=== PATIENT | female | born 1990 | race Caucasian/White ===

== ENCOUNTER → 2017-09-25 | Day surgery (SDC) | payer OTHER ==
--- NOTE | 2017-09-24 13:03 | Pre Op History & Physical ---
CHIEF COMPLAINT: Chronic sinusitis, nasal obstruction and recurrent tonsillitis. HISTORY OF PRESENT ILLNESS: This 26-year-old female has 4 to 6 episodes of tonsillitis a year for the past few years. The patient has been treated with multiple antibiotics with no improvement. She also has nasal obstruction, worse on the left side, with postnasal drip discharge from her nose. The patient's sinus problem has been also treated recently with multiple antibiotics with no improvement. She had endoscopic sinus surgery done in September of 2016 with not much improvement of the condition. The CT scan of paranasal sinuses done before surgery showed the patient has chronic sinusitis and deviated nasal septum. REVIEW OF SYSTEMS: Showed no recent cardiovascular, respiratory or GI problem. PAST MEDICAL HISTORY: Patient has no significant medical problem. PAST SURGICAL HISTORY: The patient has previous endoscopic sinus surgery, shoulder surgery, collapsed lung. ALLERGIES: SHE IS ALLERGIC TO ZOFRAN. MEDICATIONS: She is not on any regular medication. SOCIAL HISTORY: Nonsmoker and a social drinker. FAMILY HISTORY: Noncontributory. PHYSICAL EXAMINATION VITAL SIGNS: Within normal limits. EAR: Shows normal tympanic membrane bilaterally. NOSE: Hypertrophy of inferior turbinate. THROAT: Oropharynx oral cavity showed 3+ tonsils on left, 2+ on the right. NECK: No lymph node or thyroid palpable. CHEST: Good entry bilaterally. CARDIOVASCULAR: S1 and S2. No murmur noted. Ms. Renae has chronic sinusitis, nasal obstruction and recurrent tonsillitis which has been resistant to conservative therapy. The suggested treatment is endoscopic sinus surgery, septoplasty, tonsillectomy, possible adenoidectomy and other necessary procedure. Complication of procedure includes but not limited to bleeding, infection, CSF leak, blindness, double vision, meningitis, septal perforation, septal hematoma, persistent nasal obstruction, persistent nasal crusting, nasal deformity, recurrence of the sinus problem along with hypernasal speech, nasal regurgitation of food, airway distress or recurrence of sore throat. The alternative would be continued observation, continued antibiotic therapy, topical nasal steroid therapy, systemic steroid therapy, decongestant. The patient has elected to undergo the surgical procedure. Job#: [id number] SABA
[~2017-09-25] MED LIST: BUPIVACAINE 0.5%/EPI 30 ML SDV INJ ONE; COCAINE HCL 4% 4 ML BTL EXT ONE; DEXAMETHASONE SOD PHOS 10 MG/1 ML VIAL ONE; DEXAMETHASONE SOD PHOS INJ 4 MG/ML VIAL ONE; EPINEPHRINE HCL INJ 1 MG/ML AMP ONE; FENTANYL CITRATE/PF 100MCG/2 ML INJ ONE; GLYCOPYRROLATE INJ 1MG/ 5 ML SYR ONE; HYDROMORPHONE 1MG/1ML INJ ONE; LIDOCAINE 1% W/EPINEPHRINE 20 ML VIAL ONE; LIDOCAINE HCL (LTA) 4 ML SOLN ONE; LIDOCAINE HCL 2% LOCAL INJ 5 ML SDV VIAL INJ ONE; MIDAZOLAM HCL 2 MG/2 ML VIAL ONE; NEOSTIGMINE 5 MG/5ML SYR ONE; PROMETHAZINE HCL (IM) 25 MG/ML VIAL ONE; PROPOFOL IV EMULSION 10 MG/ML 20 ML VIAL ONE; ROCURONIUM BROMIDE 10 MG/ML 5ML VIAL ONE; SEVOFLURANE INHAL SOLN 250 ML PEN BTL ONE; TRIAMCINOLONE 0.1% OINTMENT 15 GM TUBE ONE
--- NOTE | 2017-09-25 17:30 | Operative Report ---
DATE OF PROCEDURE: September 25, 2017 CHIEF COMPLAINT: Chronic sinusitis, nasal obstruction and recurrent tonsillitis. POSTOPERATIVE DIAGNOSIS: 1. Chronic sinusitis. 2. Nasal obstruction. 3. Recurrent tonsillitis. OPERATIVE PROCEDURE: 1. Bilateral anterior ethmoidectomy. 2. Bilateral maxillary sinus antrostomy. 3. Bilateral resection of polyps of the maxillary antrum. 4. Tonsillectomy. ANESTHESIA: Anesthesiology group. INDICATIONS: This 26-year-old female has history of 6 to 7 episodes of tonsillitis a year for the past few years. She also has nasal obstruction, worse on the left side with a blockage feeling on the left. The patient's condition has been treated with topical nasal steroid, decongestant, antibiotics with no improvement. On examination she was noted have hypertrophy of the inferior turbinate and a slight deviated nasal septum to the left side about 20% or 30%. The patient had 2+ tonsils bilaterally with exudate. The patient had previous endoscopic sinus surgery about a year ago. This was performed elsewhere. A repeat CT scan of paranasal sinuses showed the patient has operated anterior ethmoid sinuses, but the left side was not open with some narrowing. She also was noted to have mucosal thickening in the maxillary sinus. It was decided that limited endoscopic sinus surgery with opening of the left ethmoid and resection of maxillary sinus polypoid changes along with tonsillectomy and other necessary procedures would be beneficial for her. DESCRIPTION OF PROCEDURE: Patient was taken to the operating room and put under general anesthesia, endotracheally intubated. The nose was injected with 1% Xylocaine with 1:100,000 epinephrine for hemostasis. Epinephrine-soaked pledgets were inserted into the nose. These were subsequently removed. The left paranasal sinuses were approached first. Middle turbinate was medialized. The anterior ethmoid sinus was entered. The bulla ethmoidalis was entered. Anterior ethmoid sinus was dissected in systematic fashion. Care was taken during dissection to ascertain the orbit was not entered. Polypoid changes were noted in the anterior ethmoid sinus area. The maxillary natural ostium was addressed. This has closed back down. This was enlarged using a microshaver. The polypoid changes in the maxillary sinus were dissected using the up-biting True-Cut forceps. The right paranasal sinuses were approached. Middle turbinate was medialized. Only the anterior portion of the anterior ethmoid sinuses was opened. The rest has been closed down. This was opened up using the microshaver. Care was taken during dissection to ascertain the orbit was not entered. Polypoid changes were noted. The natural ostium of the right side was open. The maxillary sinus was partially open. This was further enlarged using a microshaver. Polypoid changes in the maxillary sinus were dissected using a microshaver. The deviated nasal septum to the left side was medialized using a [place] elevator. Nasopore was inserted in the sinus cavities on either side. This was done to prevent synechiae formation and for hemostasis. The tonsillectomy was performed. The patient was repositioned. She was put in a N[place] position. A McIvor mouth gag was inserted. The tonsillar fossas were injected with 1/2 percent Marcaine with 1:200,000 epinephrine. The adenoid tissue was examined. It was not noted to be hypertrophied or inflamed. The right tonsil was retracted medially. A plane was created between the tonsil and tonsillar bed. Dissection was carried around the inferior pole. Tonsil was snared. A similar procedure was carried on the contralateral side. Tonsillith was noted in both the right and left tonsil. Hemostasis in the tonsillar beds was achieved using the suction cautery. Nasopharynx, oropharynx and oral cavity were irrigated with copious amount of normal saline. Stomach was suctioned out at the end of procedure. The patient tolerated the above procedure well with estimated blood loss about 30 mL. She was given 20 mg of Decadron intraoperatively. Patient was able to be transferred to the recovery room in stable condition. Job#: [id number] EV
== END | disposition home or self-care (01) ==
LOC: OR 10:35
PROVIDERS: ATTEND Otolaryngology Otolaryngology/Facial Plastic Surgery
DX: J32.0 Chronic maxillary sinusitis (principal); J32.2 Chronic ethmoidal sinusitis; J33.8 Other polyp of sinus; J34.89 Other specified disorders of nose and nasal sinuses; J35.01 Chronic tonsillitis; J34.3 Hypertrophy of nasal turbinates; J34.2 Deviated nasal septum
CPT/HCPCS: 31254; 31267; 42826; 81025; 88304; 88305; J0171; J1100 ×2; J1170; J2001; J2250; J2550; J3490